=== PATIENT | male | born 1950 | race Caucasian/White ===

== ENCOUNTER → 2020-08-09 09:38 | Outpatient (BNVA) | payer MEDICARE, SELFPAY | PROVIDERS: Visit Provider Family Medicine | DX: Z95.2 Presence of prosthetic heart valve (principal); Z51.81 Encounter for therapeutic drug level monitoring; Z79.01 Long term (current) use of anticoagulants | CPT/HCPCS: 85610; 99211 ==

== ENCOUNTER → 2020-08-23 10:27 | Outpatient (BNVA) | payer MEDICARE, SELFPAY | PROVIDERS: PCP Family Medicine; Visit Provider Internal Medicine | DX: Z95.2 Presence of prosthetic heart valve (principal); Z51.81 Encounter for therapeutic drug level monitoring; Z79.01 Long term (current) use of anticoagulants | CPT/HCPCS: 85610 ==

== ENCOUNTER → 2020-08-27 09:12 | Outpatient (BNVA) | payer MEDICARE, SELFPAY | PROVIDERS: PCP Family Medicine; Visit Provider Internal Medicine | DX: Z95.2 Presence of prosthetic heart valve (principal); Z51.81 Encounter for therapeutic drug level monitoring; Z79.01 Long term (current) use of anticoagulants | CPT/HCPCS: 85610 ==

== ENCOUNTER → 2020-09-10 08:59 | Outpatient (BNVA) | payer MEDICARE, SELFPAY | PROVIDERS: PCP Family Medicine; Visit Provider Internal Medicine | DX: Z95.2 Presence of prosthetic heart valve (principal); Z51.81 Encounter for therapeutic drug level monitoring; Z79.01 Long term (current) use of anticoagulants | CPT/HCPCS: 85610; 99211 ==

== ENCOUNTER → 2020-10-08 08:46 | Outpatient (BNVA) | payer MEDICARE, SELFPAY | PROVIDERS: PCP Family Medicine; Visit Provider Internal Medicine | DX: Z95.2 Presence of prosthetic heart valve (principal); Z51.81 Encounter for therapeutic drug level monitoring; Z79.01 Long term (current) use of anticoagulants | CPT/HCPCS: 85610; 99211 ==

== ENCOUNTER → 2020-11-05 08:34 | Outpatient (BNVA) | payer MEDICARE, SELFPAY | PROVIDERS: PCP Family Medicine; Visit Provider Internal Medicine | DX: Z95.2 Presence of prosthetic heart valve (principal); Z51.81 Encounter for therapeutic drug level monitoring; Z79.01 Long term (current) use of anticoagulants | CPT/HCPCS: 85610; 99211 ==

== ENCOUNTER 2020-11-26 07:29 | Day surgery (SDC) | payer MEDICARE, SELFPAY ==
[2020-11-21 09:10] VITALS: BMI 27.1
--- NOTE | 2020-11-22 13:39 | P.CONAN_ITS ---
Documented by User: Savanah Luna 11/22/20 13:53 HPI - Anesthesia Eval Consult details Narrative: 70yo M for Colonoscopy Cardiac cleared @ moderate [facility] Past Medical History Medical History Alcoholic cirrhosis of liver without ascites Angina pectoris Aortic valvular disease BPH (benign prostatic hyperplasia) CAD (coronary artery disease) Frequent urination GERD (gastroesophageal reflux disease) HTN (hypertension) Hx of cardiac arrhythmia Iron deficiency anemia Myocardial infarction Non-ischemic cardiomyopathy On anticoagulant therapy On beta tess at home MARIANELA on CPAP Pacemaker Poor historian Vitamin D deficiency Surgical History Surgical History AICD (automatic cardioverter/defibrillator) present H/O hernia repair Hx laparoscopic cholecystectomy Hx of aortic valve replacement (~2001) Hx of colonoscopy Social History Social History Smoking Status: Never smoker Second Hand Smoke Exposure: No Use of substances other than those prescribed or required for medical reasons: No Advance Directives: No Advance Directives Information Provided: No Advance Directives on File: No Meds Allergies Allergy/AdvReac Type Severity Reaction Status Date / Time No Known Allergies Allergy Unknown UN Verified 11/05/20 08:36 Home Medications Medication Instructions Recorded Confirmed Type finasteride 5 mg PO DAILY 08/13/20 11/21/20 History metoprolol tartrate 12.5 mg PO BID 08/13/20 11/21/20 History omeprazole 20 mg PO DAILY 08/13/20 11/21/20 History oxybutynin chloride 5 mg PO DAILY 08/13/20 11/21/20 History simvastatin 40 mg PO DAILY 08/13/20 11/21/20 History tamsulosin 0.4 mg PO DAILY 08/13/20 11/21/20 History Exam Exam Date and Time: November 22, 2020 1339 Height,Weight and Vital Signs: Height 5 ft 6 in Weight 76.204 kg Pertinent Lab Results Pertinent Lab Results: Laboratory Tests 01/08/20 01/08/20 11/05/20 09:02 09:02 08:38 WBC 8.3 Hgb 15.9 Hct 46.5 Plt Count 123 L Whole Blood PT 27.9 H Whole Blood INR 2.3 H Sodium 139 Potassium 5.0 Chloride 106 BUN 9 Creatinine 1.03 Total Bilirubin 3.3 H AST 25 ALT 22 Alkaline Phosphatase 77 Total Protein 6.9 Albumin 3.7 Narrative Narrative: ICD Interr 09/2020 on chart: DDDR-50 Battery 4.7years AP 33.7% DIVISION CHIEF 0.3 Echo 08/07/20: Mod global hypokinesis of LV, LVEF 35-45%, Indeterm diastolic function, Nmly functioning prosthetic aortic valve Assessment and Plan Assessment Anesthesia Assessment: Chart Reviewed Documented by User: Cely Miller 11/26/20 08:58 [facility] Past Medical History Medical History Alcoholic cirrhosis of liver without ascites Angina pectoris Aortic valvular disease BPH (benign prostatic hyperplasia) CAD (coronary artery disease) Frequent urination GERD (gastroesophageal reflux disease) HTN (hypertension) Hx of cardiac arrhythmia Iron deficiency anemia Myocardial infarction Non-ischemic cardiomyopathy On anticoagulant therapy On beta tess at home MARIANELA on CPAP Pacemaker Poor historian Vitamin D deficiency Surgical History Surgical History AICD (automatic cardioverter/defibrillator) present H/O hernia repair Hx laparoscopic cholecystectomy Hx of aortic valve replacement (~2001) Hx of colonoscopy Social History Social History Smoking Status: Never smoker Second Hand Smoke Exposure: No Use of substances other than those prescribed or required for medical reasons: No Advance Directives: No Advance Directives Information Provided: No Advance Directives on File: No Meds Allergies Allergy/AdvReac Type Severity Reaction Status Date / Time No Known Allergies Allergy Unknown UN Verified 11/05/20 08:36 Home Medications Medication Instructions Recorded Confirmed Type finasteride 5 mg PO DAILY 08/13/20 11/21/20 History metoprolol tartrate 12.5 mg PO BID 08/13/20 11/21/20 History omeprazole 20 mg PO DAILY 08/13/20 11/21/20 History oxybutynin chloride 5 mg PO DAILY 08/13/20 11/21/20 History simvastatin 40 mg PO DAILY 08/13/20 11/21/20 History tamsulosin 0.4 mg PO DAILY 08/13/20 11/21/20 History Exam Airway Mallampati Class: II Partial: Upper Heart: RRR Lungs: CTA Assessment and Plan Assessment Anesthesia Assessment: Anesthesia Plan Discussed and Chart Reviewed Final Anesthetic Review NPO: Yes ASA Class: III Final Preanesthetic Review: Meds/Allgs Chart Reviewed, Consent Obtained/Reviewed and Anes Risks/Benef Reviewed Patient Risk: Intermediate Procedure Risk: Low Anesthetic Plan Anesthetic Plan: MAC: Disposition: Standard PACU
[2020-11-26 08:25] VITALS: BP 169/95; PULSE 67; RESP 18; TEMP 36.8; O2SAT 97
[2020-11-26] MEDS: Lactated Ringers 1,000 ML 20 ML IVCONT (08:45)
--- NOTE | 2020-11-26 08:46 | MHC.SHP ---
Pre-Procedural Eval Section B Chief Complaint: Tubular adenoma of colon Details of Present Illness: Colon cancer screening--Hx TA. No clinical changes since May Tele visit. Stopped coumadin 11/25 (Aortic valve replacement.) Relevant Family History (Specify if Yes): No Relevant Social History: None Present Medications: see Short Stay Collaborative assessment Medical History: Significant History (GERD, MARIANELA, Hypertension, Aortic valve replacement.) History of Previous Operations: No relevant previous surgery (cholecystectomy, Hx colos with tubular adenomas since 2008) Allergies: Allergies Allergy/AdvReac Type Severity Reaction Status Date / Time No Known Allergies Allergy Unknown UN Verified 11/05/20 08:36 Review of Systems Sugical H&P ROS: Negative: Constitution, Respiratory and Gastrointestinal Exam Surgical H&P Exam: Normal: HEENT, Normal: Lungs, Normal: Extremities and Normal: Abdomen and Significant Findings: Heart (valve repair) Plan Diagnosis/Plan: Unchanged I have reviewed the history and physical and performed a pertinent physical examination on my patient. No changes have occurred unless specified.YEs
[2020-11-26 08:54] LABS: INTERNATIONAL NORM RATIO 1.3 (0.9-1.1); Prothrombin Time 15.3 SEC (10.8-13.0)
--- NOTE | 2020-11-26 10:02 | PM.PROC ---
Brief Operative Note Date of procedure: 11/26/20 Pre-op diagnosis: HX OF TUBULAR ADENOMAS Post-op diagnosis: other (POLYPS, DIVERTICULOSIS, 2+ INTERNAL HEMORRHOIDS.) Procedure: COLONOSCOPY WITH EXCISIONAL POLYPECTOMIES(X 2) Anesthesia: MAC (MD TONY) and other Surgeon: Carlotta Huerta Estimated blood loss (mL): 5 Pathology: other (CECAL, 50CM, 15CM) Condition: stable Disposition: PACU
[2020-11-26 10:03] VITALS: BP 109/58; PULSE 57; RESP 16; TEMP 36.4; O2SAT 95
[2020-11-26 10:18] VITALS: BP 140/74; PULSE 60; RESP 16; O2SAT 97
[2020-11-26 10:32] VITALS: BP 136/78; PULSE 61; RESP 18; TEMP 36.4; O2SAT 97
--- NOTE | 2020-11-26 11:26 | OP_ITS ---
SURGEON: Carlotta Huerta MD PREOPERATIVE DIAGNOSIS: History of polyps. POSTOPERATIVE DIAGNOSIS: Polyp, diverticulosis, internal hemorrhoids 2+. PROCEDURE PERFORMED: Colonoscopy with excisional polypectomy x3. ESTIMATED BLOOD LOSS: <10cc COMPLICATIONS: No complications. ANESTHESIA: Monitored. ANESTHESIOLOGIST: Cely Miller MD ASSISTANTS: No cardiology physician assistant. SPECIMENS: Removed cecal 50 cm, 15 cm. PODIATRY TEACHER: Dr. Huerta. CONDITION: Postop, stable. DESCRIPTION OF PROCEDURE: Digital rectal exam, prostate 1.5 times normal size, soft, decreased rectal tone. Video colonoscope was introduced without difficulty. It was navigated into the rectum and rectosigmoid. There were a number of diverticula throughout the rectosigmoid and sigmoid. The scope moved slowly through this area on up through descending, transverse, ascending colon down into the cecum. Appendiceal orifice was seen. Ileocecal valve was well seen. No mucosal abnormalities. Prep was good. There were fair areas of very fluid residual that was easily flushed and suctioned. There was scattered enteric coated pill ghost present. As we withdrew, there was a diminutive cecal polyp, a polyp at 50 cm and 1 at 15 cm. Anorectal verge was clear, but there were 2+ internal hemorrhoids in the anal canal. The patient tolerated the procedure. PLAN: Repeat colon cancer screening in this patient will be 5 years. GRAFT OR IMPLANTS: No grafts or implants. Carlotta Huerta MD MEN/MODL / [id number] MTDD
== END 2020-11-26 11:05 | disposition home or self-care (01) ==
PROVIDERS: Nurse Practitioner; PCP Family Medicine; Visit Provider Internal Medicine Gastroenterology
PROC: 0DJD8ZZ Inspection of Lower Intestinal Tract, Via Natural or Artificial Opening Endoscopic (ICD-10-PCS; CPT 45378; principal; 2020-11-26 08:30)
DX: Z12.11 Encounter for screening for malignant neoplasm of colon (principal); Z86.010 Personal history of colon polyps; K63.5 Polyp of colon; K57.30 Diverticulosis of large intestine without perforation or abscess without bleeding; K64.8 Other hemorrhoids; D50.9 Iron deficiency anemia, unspecified; K70.30 Alcoholic cirrhosis of liver without ascites; K21.9 Gastro-esophageal reflux disease without esophagitis; I10 Essential (primary) hypertension; I42.8 Other cardiomyopathies; Z95.0 Presence of cardiac pacemaker; Z95.2 Presence of prosthetic heart valve; Z79.01 Long term (current) use of anticoagulants; G47.33 Obstructive sleep apnea (adult) (pediatric); E55.9 Vitamin D deficiency, unspecified; Z79.899 Other long term (current) drug therapy
CPT/HCPCS: 45380; 36415; 85610; 88305

== ENCOUNTER → 2020-12-02 09:30 | Outpatient (BNVA) | payer MEDICARE, SELFPAY | PROVIDERS: PCP Family Medicine; Visit Provider Internal Medicine | DX: Z95.2 Presence of prosthetic heart valve (principal); Z51.81 Encounter for therapeutic drug level monitoring; Z79.01 Long term (current) use of anticoagulants | CPT/HCPCS: 85610; 99211 ==

== ENCOUNTER → 2020-12-13 09:11 | Outpatient (BNVA) | payer MEDICARE, SELFPAY | PROVIDERS: PCP Family Medicine; Visit Provider Internal Medicine | DX: Z95.2 Presence of prosthetic heart valve (principal); Z51.81 Encounter for therapeutic drug level monitoring; Z79.01 Long term (current) use of anticoagulants | CPT/HCPCS: 85610; 99211 ==